=== PATIENT | male | born 1950 | race Caucasian/White ===

== ENCOUNTER 2018-10-01 13:00 | Outpatient (CLI) | payer OTHER ==
[~2018-10-01] VITALS: Ht 167.6 cm; Wt 95.3 kg
[2018-10-01] MEDS ORDERED: METF-399 PO (13:43)
[2018-10-01] MEDS ORDERED: APIX2.5T PO (13:43)
[2018-10-01] MEDS ORDERED: METO-370 PO (13:43)
[2018-10-01] MEDS ORDERED: MULT-178 PO (13:43)
== END 2018-10-01 14:02 | disposition home or self-care (01) ==
LOC: PREOP 13:00
PROVIDERS: ATTEND Surgery
DX: Z01.818 Encounter for other preprocedural examination (principal)

== ENCOUNTER 2018-10-06 08:07 | Day surgery (SDC) | payer MEDICARE, OTHER ==
[~2018-10-06] VITALS: Ht 167.6 cm; Wt 95.3 kg
[~2018-10-06 08:07] MED LIST: APIX2.5T PO; METF-399 PO; METO-370 PO; MULT-178 PO
[2018-10-06] MEDS ORDERED: LACTATED RINGERS 1,000 ML IV ONE (08:12)
[2018-10-06] MEDS ORDERED: LACTATED RINGERS 1,000 ML IV STA (08:21)
[2018-10-06 08:52] VITALS: BP 126/91
--- NOTE | 2018-10-06 09:23 | Progress Note-Pre Operative ---
Pre-Operative Progress Note H&P Reviewed The H&P was reviewed, patient examined and no changes noted. Time Seen by Provider: 09:18 Date H&P Reviewed: Oct 06, 2018 Time H&P Reviewed: 09:17 Pre-Operative Diagnosis: Personal Hx of Colon polyps VIRGINIA KERNS DO Oct 06, 2018 09:23
[2018-10-06] MEDS ORDERED: MIDAZOLAM 2 MG/2 ML (VERSED) VIAL ONE (09:57)
[2018-10-06] MEDS ORDERED: ETOMIDATE IV SOLN 20 MG/10 ML VIAL ONE (09:57)
[2018-10-06] MEDS ORDERED: fentaNYL INJECTION 100 MCG/2 ML AMP ONE (09:58)
[2018-10-06] MEDS ORDERED: LIDOCAINE PF 2% 5 ML (XYLOCAINE) VIAL ONE (09:59)
[2018-10-06] MEDS ORDERED: PROPOFOL INJECTION 50 ML IV ONE (09:59)
[2018-10-06 10:50] VITALS: BP 102/59
--- NOTE | 2018-10-06 10:51 | Progress Note-Post Operative ---
Post-Operative Progess Note Surgeon (s)/Heel Attacher (s) Surgeon VIRGINIA KERNS DO Heel Attacher: none Pre-Operative Diagnosis Personal Hx of Colon polyps Post-Operative Diagnosis Colon Polyps Diverticula Int hemorrhoids Ext hemorrhoidal skin tag Procedure & Operative Findings Date of Procedure 10/06/18 Procedure Performed/Findings Colon with snare Colon with hot bx Anesthesia Type IV sedation by AUTO MECHANICS TEACHER Estimated Blood Loss Estimated blood loss (mL): scant Specimens/Packing Specimens Removed Transverse colon polyp Asc colon polyp Rectal polyp VIRGINIA KERNS DO Oct 06, 2018 10:51
--- NOTE | 2018-10-06 10:53 | Endoscopy Discharge Instruct ---
Endo Procedure/Findings Findings 1.: Polyp 2.: Diverticulosis 3.: Internal Hemorrhoids Discharge Instructions - Activity: You might feel a little sleepy until tomorrow. This is due to the medicine you received to relax you. Until tomorrow, you should: NOT drive a car, operate machinery or power tools. NOT drink any alcoholic beverages. NOT make any important decisions or sign importortant papers. Do not return to work until tomorrow, unless otherwise instructed. Resume previous activities tomorrow. Diet: Start by taking liquids. If you tolerate liquids, advance to solid food. make an appointment for one week Instructions: 1.: Colonscopy in 5 years Notify Physician - If you experience excessive bleeding, unusual abdominal pain, fever, or chest pain, contact your doctor immediately. Follow-Up: - I have received and understand the above instructions and will call my doctor if I have any further questions. Patient Signature Date Nurse Signature Other (Relationship) VIRGINIA KERNS DO Oct 06, 2018 10:53
--- NOTE | 2018-10-06 11:12 | Anesthesia-General Post-Op ---
MAC Patient Condition Mental Status/LOC: Same as Preop Cardiovascular: Satisfactory Nausea/Vomiting: Absent Respiratory: Satisfactory Pain: Controlled Complications: Absent Post Op Complications Complications None Follow Up Care/Instructions Patient Instructions None needed. Anesthesiology Discharge Order Discharge Order Patient is doing well, no complaints, stable vital signs, no apparent adverse anesthesia problems. No complications reported per nursing. NATTY DICKINSON CRNA Oct 06, 2018 11:12
[2018-10-06 11:20] VITALS: BP 138/98
[2018-10-06 11:45] VITALS: BP 138/98
--- NOTE | 2018-10-06 21:23 | OPERATIVE REPORT ---
DATE OF SERVICE: 10/06/2018 PREOPERATIVE DIAGNOSIS: Personal history of colon polyps. POSTOPERATIVE DIAGNOSES: 1. Colon polyps. 2. Diverticula. 3. Internal hemorrhoids. 4. External hemorrhoidal skin tag. PROCEDURE: 1. Colonoscopy with snare polypectomy. 2. Colonoscopy with hot biopsy. SURGEON: Kwasi Dos Santos DO NEWSROOM INTERN: None. ANESTHESIA: IV sedation by PATROL SUPERVISOR. SPECIMEN: One transverse colon polyp, one ascending colon polyp and one rectal polyp. BLOOD LOSS: Scant. FLUIDS: Per anesthesia. POSTOPERATIVE CONDITION: Stable. INDICATION FOR PROCEDURE: The patient is a 68-year-old male with a history of colon polyps and needs a repeat colonoscopy. FINDINGS: The patient had one large polyp in the transverse colon and then he had two flat polyps, one in the ascending colon and one in the rectum. The patient also had large diverticula in the sigmoid and descending colon as well as some internal hemorrhoids. PROCEDURE NOTE: After informed consent was obtained, the patient was brought to the operating room. The patient was brought to the endoscopy suite, placed in the bed in left lateral decubitus position. He was administered IV sedation by the PATROL SUPERVISOR who then monitored his vitals the entire time, heart rate, blood pressure, pulse ox and the scope was inserted, pushed in, noted some large diverticula throughout the sigmoid and descending colon and then up in the transverse colon, saw a large polyp, took a picture of this and then the snare polypectomy and then continued on up to the ascending colon, saw a large flat polyp, I elected to do a hot biopsy because there was a flat polyp and because he has a history of AFib and will be on blood thinners, pushed through. Once we got this we pushed passed this into the cecum, took a picture of appendiceal orifice, noted the ileocecal valve and then slowly withdrew the scope insufflating to look circumferentially at the adams looking at the cecum up the ascending colon to the hepatic flexure, then down the transverse colon to the splenic flexure, into the descending colon down into the sigmoid, again took pictures of the large diverticula and then into the rectum. In the rectum saw another flat polyp, I elected another hot biopsy here and then retroflexed the rectal vault, saw some minimal internal hemorrhoids, took a picture of this and removed the scope. The patient tolerated the procedure and transferred to recovery in the endoscopy suite. Job ID: [id number] DocumentID: [id number] Dictated Date: 10/06/2018 14:40:06 Retort Furnace Operator Date: 10/06/2018 21:21:59 Dictated By: KWASI DOS SANTOS DO
== END 2018-10-06 11:45 | disposition home or self-care (01) ==
LOC: ENDO 08:07
PROVIDERS: ATTEND Surgery
DX: Z12.11 Encounter for screening for malignant neoplasm of colon (principal); D12.3 Benign neoplasm of transverse colon; D12.2 Benign neoplasm of ascending colon; K63.5 Polyp of colon; K62.1 Rectal polyp; K64.8 Other hemorrhoids; K64.4 Residual hemorrhoidal skin tags; K57.30 Diverticulosis of large intestine without perforation or abscess without bleeding; E11.9 Type 2 diabetes mellitus without complications; I10 Essential (primary) hypertension; F17.210 Nicotine dependence, cigarettes, uncomplicated; Z86.010 Personal history of colon polyps; Z79.84 Long term (current) use of oral hypoglycemic drugs; Z79.899 Other long term (current) drug therapy
CPT/HCPCS: 82962

== ENCOUNTER → 2021-06-15 | Outpatient (CLI) | payer MEDICARE, OTHER ==
[~2021-06-15] MED LIST changes: -METO-370 PO; +METO50TA7 PO
--- NOTE | 2021-06-15 16:33 | Diagnostic Imaging Report ---
EXAMINATION: Chest 2 view. HISTORY: Bronchitis. COMPARISON: None available. FINDINGS: Heart size and pulmonary vasculature are normal. The lungs are clear without consolidation, pleural effusion or pneumothorax. Degenerative changes of the thoracic spine. Osseous structures are otherwise intact. IMPRESSION: No acute radiographic abnormality in the chest. Dictated by: Dictated on workstation # [id number]
== END ==
LOC: RAD FS 16:06
PROVIDERS: ATTEND Family Medicine
DX: J40 Bronchitis, not specified as acute or chronic (principal)
CPT/HCPCS: 71046

== ENCOUNTER 2022-04-10 06:33 | Outpatient (CLI) | payer MEDICARE, OTHER ==
[~2022-04-10] VITALS: Ht 167.6 cm; Wt 98.1 kg
== END 2022-04-11 15:23 | disposition home or self-care (01) ==
LOC: PREOP 06:33
PROVIDERS: ATTEND Surgery
DX: Z01.818 Encounter for other preprocedural examination (principal)

== ENCOUNTER 2022-04-16 09:52 | Day surgery (SDC) | payer MEDICARE, OTHER ==
[~2022-04-16] VITALS: Ht 167.6 cm; Wt 98.1 kg
[2022-04-16] MEDS ORDERED: LACTATED RINGERS 1,000 ML IV STA (10:01)
[2022-04-16 10:16] VITALS: BP 154/101
--- NOTE | 2022-04-16 10:24 | Progress Note-Pre Operative ---
Pre-Operative Progress Note Date of Available H&P: Mar 27, 2022 Date H&P Reviewed: Apr 16, 2022 Time H&P Reviewed: 10:22 History & Physical: H&P Reviewed, Patient Examed, No changes noted Pre-Operative Diagnosis: Hx of polyps VIRGINIA KERNS DO Apr 16, 2022 10:24
[2022-04-16] MEDS ORDERED: PROPOFOL INJECTION 50 ML IV ONE (10:50)
--- NOTE | 2022-04-16 11:18 | Progress Note-Post Operative ---
Post-Operative Progess Note Surgeon (s)/Conditioning Coach (s) Surgeon VIRGINIA KERNS DO Conditioning Coach: ELOY Leonard Pre-Operative Diagnosis Hx of polyps Post-Operative Diagnosis Polyps int hemorrhoids ext hemorrhoidal skin tag Procedure & Operative Findings Date of Procedure 04/16/22 Procedure Performed/Findings Colonoscopy with snare polypectomy PROCEDURE NOTE: After informed consent was obtained, the patient was brought to the endoscopy suite, placed in bed in left lateral decubitus position. He was administered IV sedation by the SPRING UP SUPERVISOR who then monitored his vitals the entire time, heart rate, blood pressure and pulse ox and the scope was inserted, pushed all the way to about 150 cm and pushed into the cecum, took a picture of appendiceal orifice and noted the ileocecal valve. Then slowly withdrew the scope insufflating to look circumferentially at the adams starting in the cecum, up the ascending colon to the hepatic flexure, then down the transverse colon to the splenic flexure and into the descending colon. At about 60cm in the descending colon found a polyp and removed it with a snare polypectomy. Patient appeared to have multiple small flat polyps; look like hyperplastic polyps. Continued down into the sigmoid and then into the rectal vault and retroflexed the scope. Took a picture of the internal hemorrhoids. The patient tolerated the procedure. He was recovered in endoscopy suite. Recommended for repeat colonoscopy in 5 years. Anesthesia Type Iv sedation by SPRING UP SUPERVISOR Estimated Blood Loss Estimated blood loss (mL): scant Specimens/Packing Specimens Removed desc colon polyp VIRGINIA KERNS DO Apr 16, 2022 11:18
--- NOTE | 2022-04-16 11:19 | Endoscopy Discharge Instruct ---
Endo Procedure/Findings Findings 1.: Polyp 2.: Internal Hemorrhoids 3.: Other Findings (external hemorrhoidal tag) Discharge Instructions - Activity: You might feel a little sleepy until tomorrow. This is due to the medicine you received to relax you. Until tomorrow, you should: NOT drive a car, operate machinery or power tools. NOT drink any alcoholic beverages. NOT make any important decisions or sign importortant papers. Do not return to work until tomorrow, unless otherwise instructed. Resume previous activities tomorrow. Diet: Start by taking liquids. If you tolerate liquids, advance to solid food. 1.: Colonscopy in 5 years Notify Physician - If you experience excessive bleeding, unusual abdominal pain, fever, or chest pain, contact your doctor immediately. VIRGINIA KERNS DO Apr 16, 2022 11:19
[2022-04-16 11:21] VITALS: BP 124/84
[2022-04-16 11:25] VITALS: BP 137/96
[2022-04-16 11:58] VITALS: BP 137/96
--- NOTE | 2022-04-16 12:25 | Anesthesia-General Post-Op ---
MAC Patient Condition Mental Status/LOC: Same as Preop Cardiovascular: Satisfactory Nausea/Vomiting: Absent Respiratory: Satisfactory Pain: Controlled Complications: Absent Post Op Complications Complications None Follow Up Care/Instructions Patient Instructions None needed. Anesthesiology Discharge Order Discharge Order Patient is doing well, no complaints, stable vital signs, no apparent adverse anesthesia problems. No complications reported per nursing. YOEL SIMPSON CRNA Apr 16, 2022 12:25
== END 2022-04-16 12:04 | disposition home or self-care (01) ==
LOC: ENDO 09:52
PROVIDERS: ATTEND Surgery
DX: Z12.11 Encounter for screening for malignant neoplasm of colon (principal); D12.4 Benign neoplasm of descending colon; K64.8 Other hemorrhoids; K64.4 Residual hemorrhoidal skin tags; E11.9 Type 2 diabetes mellitus without complications; Z79.84 Long term (current) use of oral hypoglycemic drugs; E66.9 Obesity, unspecified; Z79.01 Long term (current) use of anticoagulants; Z68.34 Body mass index [BMI] 34.0-34.9, adult
CPT/HCPCS: 82947

== ENCOUNTER 2022-05-29 09:17 | Emergency (ER) | payer MEDICARE, OTHER ==
[~2022-05-29] VITALS: Ht 165 cm; Wt 95.0 kg
--- NOTE | 2022-05-29 10:22 | ED Headache ---
General Chief Complaint: Head/Cervical Problems Stated Complaint: HEADACHES Nursing Triage Note: PATIENT AMBULATORY TO ROOM 9 W C/O HEADACHE. PATIENT STATES THE PAIN STARTED 1 WEEK AGO WHEN HE STOOD UP AND THERE WAS A SHARP PAIN IN THE OCCIPITAL AREA "WHERE IT MEETS THE NECK." NOW THE PAIN IS DULL AND IN THE CONGREGATIONAL AREA. PAIN LEVEL 3-4. DENIES HX OF NECK AND BACK PAIN OR INJURY. HX OF HYPERTENSION Source: patient Exam Limitations: no limitations History of Present Illness Date Seen by Provider: May 29, 2022 Time Seen by Provider: 10:02 Initial Comments This 71-year-old gentleman presents to the emergency room with complaint of sudden left lower neck pain with a sudden onset on May 21 at around 1700. He reports standing up from the computer and having sudden severe pain. The pain has now migrated up to the head to a frontal headache. He has no prior episodes of similar pain. He has some muscle tension and pain in the neck still. He reports occasional radicular symptoms in his legs that occur intermittently for brief periods of time. This seems to be worsening in recent days. He is anticoagulated due to arrhythmia. He also has history of trauma related ICH requiring craniotomy. He denies any the neurologic symptoms or deficits. Allergies and Home Medications Allergies Coded Allergies: No Known Drug Allergies (Unverified , 04/11/22) Patient Home Medication List Home Medication List Reviewed: Yes Apixaban (Eliquis) 2.5 Mg Tablet, 2.5 MG PO BID, (Reported) Entered as Reported by: MAINOR HERNANDEZ on 10/01/18 1343 Cyclobenzaprine HCl (Cyclobenzaprine HCl) 10 Mg Tablet, 10 MG PO HS PRN for SPASMS Prescribed by: MUKESH KENYON on 05/29/22 1110 Metformin HCl (Metformin HCl) 1,000 Mg Tablet, 1,000 MG PO BID, (Reported) Entered as Reported by: MAINOR HERNANDEZ on 10/01/18 1343 Metoprolol Succinate (Metoprolol Succinate) 50 Mg Tab.er.24h, 50 MG PO BID, (Reported) Entered as Reported by: MAINOR HERNANDEZ on 10/01/18 1343 Multivitamin (Multiple Vitamins) 1 Each Tablet, 1 EACH PO DAILY, (Reported) Entered as Reported by: MAINOR HERNANDEZ on 10/01/18 1343 Review of Systems Review of Systems Constitutional: no symptoms reported Eyes: No Symptoms Reported Ears, Nose, Mouth, Throat: no symptoms reported Respiratory: no symptoms reported Cardiovascular: see HPI Gastrointestinal: no symptoms reported Genitourinary: no symptoms reported Musculoskeletal: no symptoms reported Skin: no symptoms reported Psychiatric/Neurological: No Symptoms Reported Past Hfrytaz-Besdcv-Ivydzb Hx Patient Social History Tobacco Use?: No Substance use?: No Alcohol Use?: Yes Alcohol type: Hard Liquor Alcohol Frequency: Several times a month Immunizations Up To Date First/Initial COVID19 Vaccinat: 2020 Second COVID19 Vaccination Michael: 2020 Third COVID19 Vaccination Date: 09/2021 COVID19 Vaccine Ultrasound Technol: VisConPro Seasonal Allergies Seasonal Allergies: No Past Medical History Surgeries: Yes (HERNIA X2, KNEE, Craniotomy for ICH, CARDIAC ANGIOPLASTY, EYE) Cardiac (cardiac angiography and angioplasty), Orthopedic Respiratory: Yes (chronic SOA) Cardiac: Yes (HEART ATTACK 1998) Heart Attack, High Cholesterol, Irregular Heartbeat Neurological: Yes (BRAIN BLEED 2017 OR 2018) Genitourinary: No Gastrointestinal: Yes Chronic Diarrhea, Polyps Musculoskeletal: Yes (SHOULDER, LEFT WRIST, Lumbar radiculopathy) Fractures Endocrine: Yes Diabetes, Non-Insulin dep HEENT: Yes (READING GLASSES, DENTURES) Loss of Vision: Denies Hearing Impairment: Denies Cancer: No Psychosocial: No Integumentary: Yes (RASH AT TIMES/ITCH) Blood Disorders: No Adverse Reaction/Blood Tranf: No (N/A) Physical Exam Vital Signs Vital Signs - First Documented 05/29/22 09:36 Temp 36.3 Pulse 94 Resp 18 B/P (MAP) 167/89 (115) Pulse Ox 96 O2 Delivery Room Air Capillary Refill : Less Than 3 Seconds Height, Weight, BMI Height: 5'6.00" Weight: 210lbs. 0.0oz. 95.536435nx; 34.00 BMI Method: General Appearance: WD/WN, no apparent distress HEENT: PERRL/EOMI, normal ENT inspection Neck: normal inspection, other (Mild TTP over musculature of left lower neck) Cardiovascular: regular rate, rhythm, no edema, no murmur Respiratory: lungs clear, normal breath sounds, no respiratory distress Extremities: normal inspection, no pedal edema Psychiatric: alert, oriented x 3 Crainal Nerves: normal hearing, normal speech, PERRL Coordination/Gait: normal finger to nose (normal heel to mercedes) Motor/Sensory: no motor deficit, no sensory deficit Skin: normal color, warm/dry Progress/Results/Core Measures Results/Orders My Orders Orders - MUKESH STONE MD Ct Head/Cervical Spine Wo (05/29/22 10:14) Ct Thoracic/Lumbar Spine Wo (05/29/22 10:14) Vital Signs/I&O 05/29/22 05/29/22 09:36 11:17 Temp 36.3 Pulse 94 90 Resp 18 16 B/P (MAP) 167/89 (115) 136/78 Pulse Ox 96 97 O2 Delivery Room Air Room Air Blood Pressure Mean: 115 Progress Progress Note : Progress Note CT head and complete spine obtained to rule out ICH and spinal stenosis or other spinal impingement syndrome. Patient has risk of spontaneous hemorrhage due to prior history of ICH and anticoagulation. Imaging studies were negative. MRI was suggested on an outpatient basis if further evaluation is desired or needed. Not was made of the incidental AAA. Patient was advised this needs to be discussed with PCP and/or supply chain business analyst and routinely monitored. Diagnostic Imaging Diagonstic Imaging: CT Plain Films/CT/US/NM/MRI: c-spine, head Comments CT head and cervical spine viewed by me. I appreciated no intracranial masses or hemorrhaging. Radiologist's report was also reviewed as noted below: NAME: CHRISTINA BORJAS [facility] REC#: [id number] PT STATUS: REG ER : 1950 PHYSICIAN: MUKESH STONE MD ADMIT DATE: 05/29/22/ER Signed Date of Exam:05/29/22 CT HEAD/CERVICAL SPINE WO EXAMINATION: CT head and CT cervical spine without contrast. TECHNIQUE: Multiple contiguous axial images were obtained through the brain and cervical spine without the use of intravenous contrast. Sagittal and coronal reformations through the cervical spine were then performed. All CT scans use one or more of the following dose optimizing techniques: automated exposure control, MA and/or KvP adjustment based on patient size and exam type or iterative reconstruction. HISTORY: Severe headache and neck pain COMPARISON: None available. FINDINGS: Mild generalized cerebral volume loss. Mild nonspecific periventricular hypoattenuation. . No mass effect or midline shift. The ventricles are normal in size and configuration. Basilar cisterns are patent. There are no intra- or extra-axial fluid collections. There is no intracranial hemorrhage. The orbits are normal. Paranasal sinuses are normal. Mastoid air cells are clear. No soft tissue abnormality is seen. No osseus lesions or fractures are seen. Postsurgical changes from prior right craniotomy. Lnqn-je-epkjrung multilevel degenerative changes of the cervical spine. No acute fracture or dislocation. Moderate multilevel facet arthritis. Mild to moderate multilevel spinal canal and neural foraminal stenosis. No soft tissue abnormality is seen in the neck. Limited views of the superior thorax are normal. IMPRESSION: 1. No acute intracranial abnormality. 2. No cervical spine fracture. Dictated by: Dictated on workstation # [id number] Dict: 05/29/22 1039 Trans: 05/29/22 1041 [facility] [id number] Interpreted by: LEANDRA HOLLINGSWORTH DO Electronically signed by: LEANDRA HOLLINGSWORTH DO 05/29/22 1041 Diagonstic Imaging: CT Plain Films/CT/US/NM/MRI: other (Thoracic and lumbar spine) Comments CT of the thoracic and lumbar spine viewed by me and radiologist's report reviewed as below: NAME: CHRISTINA BORJAS [facility] REC#: [id number] PT STATUS: REG ER : 1950 PHYSICIAN: MUKESH STONE MD ADMIT DATE: 05/29/22/ER Signed Date of Exam:05/29/22 CT THORACIC/LUMBAR SPINE WO CT THORACIC/LUMBAR SPINE WO 05/29/2022 10:35 AM Indication: LE numbness and weakness Comparison: None. Technique: CT imaging of the thoracic and lumbar spine was performed without contrast. Coronal and sagittal reformatted images were performed. One or more of the following dose reduction techniques were utilized: Automated exposure control (AEC), Adjustment of mA and/or kV according to patient size, Use of iterative reconstruction technique such as ASiR, CT scan done according to ALARA and image gently/image wisely. Findings: Thoracic spine: The thoracic spine is normally aligned. No acute fracture. Vertebral body heights are maintained without compression deformity. The intervertebral disc spaces are normal. No aggressive lytic or blastic osseous lesion. No significant spinal canal stenosis or neural foraminal narrowing. The visualized lungs are clear. No pleural effusion. The visualized thoracic aorta is normal caliber. Lumbar spine: The lumbar spine is normally aligned. No acute fracture. Vertebral body heights are maintained without compression deformity. The intervertebral disc spaces are normal. No aggressive lytic or blastic osseous lesion. No high grade spinal canal stenosis or neuroforaminal narrowing. No soft tissue abnormality within the visualized abdomen or pelvis. The partially imaged infrarenal abdominal aortic aneurysm. Impression: No acute osseous abnormality of the thoracic or lumbar spine. Dictated by: Dictated on workstation # [id number] Dict: 05/29/22 1041 Trans: 05/29/22 1045 [facility] [id number] Interpreted by: LEANDRA HOLLINGSWORTH DO Electronically signed by: LEANDRA HOLLINGSWORTH DO 05/29/22 1045 Departure Impression Primary Impression: Acute headache Qualified Codes: R51.9 - Headache, unspecified Additional Impressions: Lumbar radiculopathy Infrarenal abdominal aortic aneurysm (AAA) without rupture Disposition: 01 HOME, SELF-CARE Condition: Stable Departure-Patient Inst. Decision time for Depature: 11:06 Referrals: TRU PARKS MD (PCP/Family) Primary Care Physician Patient Instructions: Headache, Adult ED, Radiculopathy Add. Discharge Instructions: The exact cause of your headache is uncertain at this time, but it does not appear to be related to any bleeding or mass inside your head. It could be related to a soft tissue problem within your neck such as a bulging disc or muscle spasm. Likewise, the radicular symptoms in your legs may be related to a soft tissue issue such as a bulging disc. Follow-up with your primary care provider as soon as you are able. If further evaluation is needed for these issues, MRI studies may be considered. You need to be aware that you have an abdominal aneurysm. This needs to be monitored by your primary care provider and/or supply chain business analyst. Please report this abdominal aneurysm anytime you provide a health history, and especially if you ever experience any abdominal pain. Please return to care in the emergency room immediately if you ever have any unexplained abdominal pain, loss of strength in your legs, bowel or bladder dysfunction, numbness in your groin, any neurologic deficit of a strokelike nature, unusual headache, or other acute problem that you think may require urge nt attention. Also return to the ER if you ever have any significant head injury. Use of Eliquis necessitates prompt evaluation in that circumstance. For pain you may take Tylenol (acetaminophen) up to 1000 mg every 6 hours as needed. For muscle tension in your neck, you may use the Flexeril (cyclobenzaprine) as prescribed. Cyclobenzaprine may cause drowsiness so do not use when driving or operating machinery. All discharge instructions reviewed with patient and/or family. Voiced understanding. Scripts Cyclobenzaprine HCl (Cyclobenzaprine HCl) 10 Mg Tablet 10 MG PO HS PRN for SPASMS, #10 TAB 0 Refills Prov: MUKESH STONE MD 05/29/22 Copy Copies To 1: SELF,MUKESH KAUR MD, MD May 29, 2022 10:22
--- NOTE | 2022-05-29 10:42 | Diagnostic Imaging Report ---
EXAMINATION: CT head and CT cervical spine without contrast. TECHNIQUE: Multiple contiguous axial images were obtained through the brain and cervical spine without the use of intravenous contrast. Sagittal and coronal reformations through the cervical spine were then performed. All CT scans use one or more of the following dose optimizing techniques: automated exposure control, MA and/or KvP adjustment based on patient size and exam type or iterative reconstruction. HISTORY: Severe headache and neck pain COMPARISON: None available. FINDINGS: Mild generalized cerebral volume loss. Mild nonspecific periventricular hypoattenuation. . No mass effect or midline shift. The ventricles are normal in size and configuration. Basilar cisterns are patent. There are no intra- or extra-axial fluid collections. There is no intracranial hemorrhage. The orbits are normal. Paranasal sinuses are normal. Mastoid air cells are clear. No soft tissue abnormality is seen. No osseus lesions or fractures are seen. Postsurgical changes from prior right craniotomy. Mjjs-ly-lkhazeym multilevel degenerative changes of the cervical spine. No acute fracture or dislocation. Moderate multilevel facet arthritis. Mild to moderate multilevel spinal canal and neural foraminal stenosis. No soft tissue abnormality is seen in the neck. Limited views of the superior thorax are normal. IMPRESSION: 1. No acute intracranial abnormality. 2. No cervical spine fracture. Dictated by: Dictated on workstation # [id number]
--- NOTE | 2022-05-29 10:46 | Diagnostic Imaging Report ---
CT THORACIC/LUMBAR SPINE 05/29/2022 10:35 AM Indication: LE numbness and weakness Comparison: None. Technique: CT imaging of the thoracic and lumbar spine was performed without contrast. Coronal and sagittal reformatted images were performed. One or more of the following dose reduction techniques were utilized: Automated exposure control (AEC), Adjustment of mA and/or kV according to patient size, Use of iterative reconstruction technique such as ASiR, CT scan done according to ALARA and image gently/image wisely. Findings: Thoracic spine: The thoracic spine is normally aligned. No acute fracture. Vertebral body heights are maintained without compression deformity. The intervertebral disc spaces are normal. No aggressive lytic or blastic osseous lesion. No significant spinal canal stenosis or neural foraminal narrowing. The visualized lungs are clear. No pleural effusion. The visualized thoracic aorta is normal caliber. Lumbar spine: The lumbar spine is normally aligned. No acute fracture. Vertebral body heights are maintained without compression deformity. The intervertebral disc spaces are normal. No aggressive lytic or blastic osseous lesion. No high grade spinal canal stenosis or neuroforaminal narrowing. No soft tissue abnormality within the visualized abdomen or pelvis. The partially imaged infrarenal abdominal aortic aneurysm. Impression: No acute osseous abnormality of the thoracic or lumbar spine. Dictated by: Dictated on workstation # [id number]
[2022-05-29] MEDS ORDERED: CYCL10TA25 PO (11:10)
[2022-05-29 11:17] VITALS: BP 136/78
== END 2022-05-29 11:17 | disposition home or self-care (01) ==
LOC: EDUNIT# 09:17 → ER 09:19
DX: R51.9 Headache, unspecified (principal); M54.16 Radiculopathy, lumbar region; I71.43 Infrarenal abdominal aortic aneurysm, without rupture; Z98.890 Other specified postprocedural states
CPT/HCPCS: 70450; 72125; 72128; 72131

== ENCOUNTER → 2022-06-22 | Outpatient (CLI) | payer MEDICARE, OTHER ==
[~2022-06-22] MED LIST changes: +CYCL10TA25 PO
--- NOTE | 2022-06-22 11:18 | Diagnostic Imaging Report ---
PROCEDURE: MR imaging of the brain without contrast. TECHNIQUE: Multiplanar, multisequence MR imaging of the brain was performed without contrast. INDICATION: 2 weeks history of severe head pain. Patient reports a history of intracranial hemorrhage, craniotomy. No prior MR. However the study correlated with head CT 05/29/2022 There is a stable mild degree of senescent cerebral cortical volume loss without rick hydrocephalus. There is mild periventricular white matter T2 hyperintensity likely small vessel sequelae. There are no foci of abnormal diffusion restriction. There were no findings of an acute or subacute ischemic infarct. Postsurgical changes to the high right frontoparietal calvarium noted. No underlying encephalomalacia or fluid collection. No abnormal extra-axial collections are found. No findings of focal nor generalized cerebral edema. The orbits and paranasal sinuses were nonacute with a stable small mucus retention cyst in the right maxillary unchanged from the prior head CT. IMPRESSION: Mild chronic senescent changes and postoperative sequelae. No findings of infarct, hemorrhage, edema, mass effect or acute abnormalities. Dictated by: Dictated on workstation # [id number]
== END ==
LOC: RAD 09:42
PROVIDERS: ATTEND Family Medicine
DX: G43.109 Migraine with aura, not intractable, without status migrainosus (principal)
CPT/HCPCS: 70551